=== PATIENT | female | born 1995 | race Caucasian/White ===

== ENCOUNTER → 2019-04-09 | Outpatient (CLI) | payer OTHER ==
[2019-04-09 17:25] LABS: HCT 36.6 % (34.0-46.0); HGB 12.1 gm/dL (11.4-16.0); MCH 30.3 pg (25.0-35.0); MCHC 33.1 g/dL (31.0-37.0); MCV 91.4 fL (80.0-100.0); Mean Platelet Volume 7.9; Platelet Count 292 k/uL (150-450); RBC 4.01 m/uL (3.80-5.40); RDW 11.9 % (11.5-15.5); WBC 9.1 k/uL (3.8-10.6)
[2019-04-09 17:35] LABS: African American GFR (CKD) >90 (>60 ml/min/1.73 sqM); Glucose 101 mg/dL (74-99); Non-African American GFR(CKD) >90 (>60 ml/min/1.73 sqM)
[2019-04-10 01:58] LABS: Hepatitis B Surface Antigen Non-Reactive (Non-Reactive)
--- NOTE | 2019-04-10 03:41 | US ---
EXAMINATION TYPE: Ultrasound OB <= 14 week fetus DATE OF EXAM: 04/09/2019 4:45 PM COMPARISON: NONE CLINICAL HISTORY: 23-year-old female [id number] Confirm Dates. EXAM PERFORMED: Transabdominal (TA) FINDINGS: EXAM MEASUREMENTS: GESTATIONAL AGE / DATING Physician Established: Not yet established Dates by LMP: 01/31/2019 (9 weeks/5 days) EDC: 11/07/2019 Dates by First Scan: No previous this is first scan Dates by Current Scan for: (10 weeks/0 days +/- 6 days) EDC: 11/05/2019 MATERNAL ANATOMY Uterus: 14.2 x 6.0 x 7.1 cm Right Ovary: 2.3 x 1.7 x 1.7 cm Left Ovary: 2.5 x 2.0 x 2.5 cm Post CDS / Adnexa: wl Presence of free fluid: none GESTATION / SURVEY CRL: 3.0 cm (10 weeks/0 days) Yolk Sac (normal less than 6mm): 0.4 cm Heart Rate: 161 bpm Rhythm: Normal IUP: Viable IUP Date of LMP: 01/31/2019 Single viable IUP that correlates with LMP. IMPRESSION: 1. Single live intrauterine with estimated gestational age of 9 weeks 5 days. Current ultra sound biometry is slightly larger (10 weeks 0 days) but remains concordant. 2. Complete survey recommended at 18-20 weeks.
[2019-04-10 08:30] LABS: HIV 1 AB Non-Reactive (Non-Reactive); HIV 2 AB Non-Reactive (Non-Reactive); HIV AB P24 Non-Reactive (Non-Reactive); HIV P24 AG Non-Reactive (Non-Reactive)
== END | disposition home or self-care (01) ==
LOC: RADUSWWP 16:28
PROVIDERS: ATTEND Obstetrics & Gynecology
DX: Z34.01 Encounter for supervision of normal first pregnancy, first trimester (principal)
CPT/HCPCS: 36415; 76801; 82565; 82947; 85027; 86762; 86780; 86850; 86900; 86901; 87340; 87390

== ENCOUNTER 2019-10-18 20:53 | Outpatient (CLI) | payer OTHER ==
[2019-10-18 21:04] VITALS: BP 117/64; PULSE 78; RESP 16; TEMP 97.4
--- NOTE | 2019-10-19 07:49 | P.MSEPDOC ---
Presenting Problems - Arrival Data Date of Arrival on Unit: 10/18/19 Time of Arrival on Unit: 20:53 Mode of Transport: Ambulatory - Complaint OB-Reason for Admission/Chief Complaint: Possible Onset of Labor Comment: Pt presents to [facility] with complaints of contractions that started around 1500. today. Pt states contractions are about 5mins apart and rates them 5/10. Pt is wincing. with contractions but can still talk through them. Pt accompanied by family. Pt denies. any complications with the and denies any leaking of fluid as well. Pt states. she was closed when checked 2 weeks ago. Medical History - Information : 1 Para: 0 Term: 0 : 0 Abortions: Spontaneous or Elective: 0 Number of Living Children: 0 - Gestational Age Gestational Age by JIM (wks/days): 37 Weeks and 1 Days Review of Systems - Review of Systems Constitutional: No problems Breast: No problems ENT: No problems Cardiovascular: No problems Respiratory: No problems Gastrointestinal: No problems Genitourinary: No problems Musculoskeletal: No problems Neurological: No problems Skin: No problems Vital Signs - Temperature Temperature: 97.4 F Temperature Source: Temporal Artery Scan - Pulse Right Brachial Pulse Rate: 78 Pulse Assessment Method: Auscultation - Respirations Respiratory Rate: 16 Oxygen Delivery Method: Room Air - Blood Pressure Right Arm Blood Pressure: 117/64 Blood Pressure Mean: 81 Blood Pressure Source: Automatic Cuff Medical Screen Scoring (Pre) - Cervical Exam Dilation: 0 cm = 0 Membranes: Intact - Uterine Contractions Frequency: > 5 minutes apart = 1 Duration: N/A Intensity: N/A - Maternal Vital Signs Maternal Temperature: N/A Maternal Blood Pressure: N/A Signs of Preeclampsia: N/A Maternal Respirations: N/A - Maternal Trauma Maternal Trauma: N/A - Assessment - Baby A Baseline FHR: 130 Heart Rate - NICHD Category: Category I (Normal) = 0 NST: Reactive Position: N/A Station: N/A - Total Score - Baby A Total Score - Baby A: 1 - Total Score - Baby B Total Score - Baby B: 1 - Total Score - Baby C Total Score - Baby C: 1 - Level of Risk - Baby A Level of Risk - Baby A: Low (0-5) - Level of Risk - Baby B Level of Risk - Baby B: Low (0-5) - Level of Risk - Baby C Level of Risk - Baby C: Low (0-5) Physician Notification (Pre) - Physician Notified Physician Notified Date: 10/18/19 Physician Notified Time: 21:26 New Order Received: Yes - Notification Comment Comment: Dr. Sheridan called and spoke with JULIANA Atkins. She stated that she had spoken with. the patient earlier. Dr. Sheridan instructed that if patients cervix remains unchanged after. the hour she may be discharged without an additional call to Cervical exam remain unchanged since previous exam. Patient states since she has been resting her contractions have "eased up".Patient to be discharged home. Discharge instructions explained to patient and family. Patient verbalized understanding. Patient to keep doctor appt with Dr. Cunningham tomorrow at 11:15. Disposition - Disposition OB Disposition: Discharge to home Discharge Date: 10/18/19 Discharge Time: 22:15 I agree with the RN Medical Screening Exam: Yes Risk & Benefit of care provided described in d/c instruction: Yes Diagnosis: FALSE LABOR AT OR AFTER 37 COMPLETED WEEKS OF GESTATION
== END 2019-10-18 22:15 | disposition home or self-care (01) ==
LOC: FBPOP 20:53
PROVIDERS: ATTEND Obstetrics & Gynecology
DX: O47.1 False labor at or after 37 completed weeks of gestation (principal); Z3A.37 37 weeks gestation of pregnancy
CPT/HCPCS: 59025; G0463; 99213

== ENCOUNTER 2019-11-07 11:26 | Inpatient (IN) | payer OTHER ==
--- NOTE | 2019-11-07 12:50 | P.HPOB ---
History of Present Illness H&P Date: 11/07/19 Chief Complaint: Requested induction of labor This patient is a pleasant 24 yr EDC 11/07/2019 estimated gestational age 40 0/7 weeks who presents to labor and delivery for requested induction of labor. has been uncomplicated with the exception of chronic anemia. She is uncomfortable and desires induction at this time. Review of Systems Genitourinary: Reports Menstruation: Reports amenorrhea Past Medical History Past Medical History: No Reported History History of Any Multi-Drug Resistant Organisms: None Reported Past Surgical History: No Surgical Hx Reported Past Anesthesia/Blood Transfusion Reactions: No Reported Reaction Past Psychological History: No Psychological Hx Reported Smoking Status: Never smoker Past Alcohol Use History: None Reported Past Drug Use History: None Reported Medications and Allergies Home Medications Medication Instructions Recorded Confirmed Type Iron 18 mg PO DAILY 10/18/19 10/18/19 History Pnv No.95/Ferrous Fum/Folic AC 1 each PO DAILY 10/18/19 10/18/19 History [ Multivitamin Tablet] Allergies Allergy/AdvReac Type Severity Reaction Status Date / Time tree and shrub pollen Allergy Itching Verified 10/18/19 20:59 Exam - OBG Physical Exam Abdomen: bowel sounds normal, no diffuse tenderness, no bruit present, no guarding noted, no hepatomegaly, no splenomegaly, no mass Vulva: both: normal Vagina: normal moisture, no discharge Cervix: no lesion (Cervix in the office was 1 cm.), no discharge Uterus: enlarged (Fundal height was 38 cm.) Results bloodwork: O positive, Rubella Immune, DCR-DvnA-ISK neg, GBS negative, Hgb 9.5, Ultrasounds show normal growth and anatomy. Received TDap on 09/12 Assessment and Plan Assessment: This is a pleasant 24 yr female 40 0/7 weeks gestational who presents for requested induction of labor. Plan is induction of labor and anticipate vaginal delivery. (1) 40 weeks gestation of Status: Acute Code(s): Z3A.40 - 40 WEEKS GESTATION OF SNOMED Code(s): 62407994 (2) Elective induction of labor planned Status: Acute Code(s): FDK9728 - SNOMED Code(s): 170450501
[2019-11-08] MEDS: LACTATED RINGERS 1,000 ML IV SCH ×3 (06:10→13:56)
[2019-11-08] MEDS ORDERED: OXYTOCIN 30 UNITS/500 ML NS 30 UNIT in SALINE 1 500ML.BAG IV SCH (06:14)
[2019-11-08] MEDS ORDERED: TERBUTALINE 1 MG/ML VIAL SQ PRN (06:14)
[2019-11-08] MEDS ORDERED: CARBOPROST TROMETHAMINE 250 MCG/ML 1 ML AMP IM PRN (06:14)
[2019-11-08] MEDS ORDERED: METHYLERGONOVINE 0.2 MG/ML 1 ML AMP IM PRN (06:14)
[2019-11-08] MEDS ORDERED: OXYTOCIN 10 UNIT/ML 1 ML VIAL IM PRN (06:14)
[2019-11-08] MEDS ORDERED: LIDOCAINE 0.5% (PF) 5 MG/ML (50 ML SDV) SQ PRN (06:14)
[2019-11-08 06:46] LABS: Basophils % (A) 0 %; Eosinophils # (A) 0.1 k/uL (0-0.7); Eosinophils % (A) 2 %; HCT 37.7 % (34.0-46.0); Lymphocytes # (A) 1.6 k/uL (1.0-4.8); Lymphocytes % (A) 21 %; MCH 30.1 pg (25.0-35.0); MCHC 31.9 g/dL (31.0-37.0); MCV 94.4 fL (80.0-100.0); Mean Platelet Volume 8.2; Monocytes # (A) 0.4 k/uL (0-1.0); Monocytes % (A) 5 %; Neutrophils # (A) 5.3 k/uL (1.3-7.7); Neutrophils % (A) 70 %; Platelet Count 272 k/uL (150-450); RBC 3.99 m/uL (3.80-5.40); RDW 12.6 % (11.5-15.5); WBC 7.5 k/uL (3.8-10.6)
[2019-11-08] MEDS: BUTORPHANOL 1 MG/ML 1 ML VIAL IV PRN ×2 (10:12→12:19)
[2019-11-08] MEDS ORDERED: SODIUM CHLORIDE 0.9% 100 ML BAG ONE (13:33)
[2019-11-08] MEDS ORDERED: ROPIVACAINE 5MG/ML 20ML VIAL ONE (13:33)
[2019-11-08] MEDS ORDERED: fentaNYL (PF) 50 MCG/ML 5 ML AMP ONE (13:33)
[2019-11-08] MEDS ORDERED: ROPIVACAINE 100 MG, fentaNYL (PF) 200 MCG in SODIUM CHLORIDE 0.9% 76 ML EPIDURAL ONE (14:11)
[2019-11-08] MEDS ORDERED: AMPICILLIN 2,000 MG in SODIUM CHLORIDE 0.9% 100 ML IVPB STA (17:40)
[2019-11-08] MEDS ORDERED: diphenhydrAMINE 25 MG CAP PO PRN (20:06)
[2019-11-08] MEDS ORDERED: SIMETHICONE 80 MG CHEWABLE PO PRN (20:06)
[2019-11-08] MEDS ORDERED: diphenhydrAMINE 50 MG/ML 1 ML VIAL IVP PRN (20:06)
[2019-11-08] MEDS ORDERED: bisacodyL 10 MG SUPP RECTAL PRN (20:06)
[2019-11-08] MEDS ORDERED: LANOLIN CREAM 5 GM TUBE TOPICAL PRN (20:06)
[2019-11-08] MEDS ORDERED: HYDROCORTISONE 2.5% RECTAL CREAM 30 GM TUBE RECTAL PRN (20:06)
[2019-11-08] MEDS ORDERED: ZOLPIDEM 5 MG TAB PO PRN (20:06)
[2019-11-08] MEDS ORDERED: BENZOCAINE/MENTHOL SPRAY 1 GM/SPRAY AEROSOL TOPICAL PRN (20:06)
[2019-11-08] MEDS ORDERED: OXYTOCIN 20 UNITS/1000 ML NS 1,000 ML IV SCH (20:06)
--- NOTE | 2019-11-08 20:43 | P.PROBDLV ---
Vaginal Delivery Note - . Vaginal Delivery Note: Normal vaginal delivery viable female Apgars 5 and 9 delivery time is 1950 hrs. Please see dictated H&P for intimate details of this patient's admission. Brief summary this is a pleasant 24-year-old 1 para 0 female estimated gestational age 40 and one sevenths weeks who presents to labor and delivery for requested induction of labor. On admission patient is approximately 2 cm dilated has artificial rupture membranes for clear fluid. Labor is induced with Pitocin per protocol. Labor progresses and she does get an epidural for pain control. Patient does have some variable decelerations that resolved with position changes during labor. When she gets to completely dilated she feels to be asynclitic therefore she is allowed to labor down. heart tones remain reassuring with occasional variable decelerations. Patient patient also devel oped towards the end of her labor a low-grade temperature of 99 therefore was given 2 g of ampicillin. Patient soon thereafter feels the urge to push and was found to be +1 station. Patient pushes approximately 3 contractions and pushes the head to the perineum. Posterior perineum was supported and we have controlled delivery of the 's head over the intact perineum. Mouth and nares are bulb suctioned. There is a very tight nuchal cord which is doubly clamped cut and then reduced. With gentle downward traction we then have deliver the anterior and posterior shoulder and rest this 's body. This is a viable female . Initially is depressed due to a tight nuchal cord, but with stimulation has spontaneous respirations and good cry. Apgars are 5 at 1 minute and 9 at 5 minutes. After delivery of the the placenta is spontaneously delivered intact. Inspection of the perineum shows a first- degree laceration and a right labial lacerations. Both of these are repaired with 3-0 Vicryl usual fashion and excellent hemostasis is noted. With this completed, all counts are correct 3. There are no complications. and mother are stable delivery room.
[2019-11-08] MEDS: IBUPROFEN 600 MG TAB PO PRN (22:59)
[2019-11-09] MEDS: SENNOSIDES-DOCUSATE SODIUM 1 EACH TAB PO SCH ×3 (04:56→20:29)
--- NOTE | 2019-11-09 05:37 | P.PNOBGVD ---
Subjective - Subjective Patient reports: Reports appetite normal, Reports voiding normally, Reports pain well controlled, Reports ambulating normally : doing well Objective - Latest Vital Signs Latest vital signs: Vital Signs Temp Pulse Resp BP Pulse Ox 11/09/19 04:00 98.1 F 81 16 118/73 97 11/08/19 22:07 98.2 F 82 16 128/68 11/08/19 21:37 98.6 F 72 16 124/66 11/08/19 21:07 98.8 F 76 16 146/97 11/08/19 20:52 83 16 125/56 11/08/19 20:37 98.3 F 82 16 112/53 11/08/19 20:22 97.6 F 73 16 119/58 11/08/19 20:07 99.9 F H 82 18 122/61 11/08/19 06:30 96.5 F L 99 18 131/71 Intake and Output 11/08/19 11/08/19 11/09/19 14:59 22:59 06:59 Intake Total 1999 Balance 1999 Intake: IV 1999 Other: # Voids 3 1 3 - Exam Lungs: bilateral: normal Chest: Normal S1, Normal S2 Extremities: Present: normal Abdomen: Present: normal appearance, soft Uterus: Present: normal, firm Assessment and Plan Assessment: Post day #1. Patient is resting without complaints. Vital signs are stable and she is afebrile. Uterus is firm nontender she's having normal lochia. My impression this is a normal course. Plan is to continue routine care discharge home tomorrow (1) 40 weeks gestation of Current Visit: No Status: Acute Code(s): Z3A.40 - 40 WEEKS GESTATION OF SNOMED Code(s): 16505608 (2) Elective induction of labor planned Current Visit: No Status: Acute Code(s): AMD4567 - SNOMED Code(s): 583016998
[2019-11-09] MEDS: ACETAMINOPHEN TAB 325 MG TAB PO PRN ×2 (05:46→23:21)
[2019-11-09] MEDS: IBUPROFEN 600 MG TAB PO PRN ×3 (07:35→20:29)
[2019-11-10] MEDS: IBUPROFEN 600 MG TAB PO PRN (02:58)
[2019-11-10] MEDS: SENNOSIDES-DOCUSATE SODIUM 1 EACH TAB PO SCH (07:33)
[2019-11-10] MEDS: ACETAMINOPHEN TAB 325 MG TAB PO PRN (07:33)
[2019-11-10 09:21] VITALS: BP 117/56; PULSE 63; RESP 19; TEMP 97.3
--- NOTE | 2019-11-10 09:37 | P.DS ---
Providers Date of admission: 11/08/19 05:50 Expected date of discharge: 11/10/19 Attending physician: Amadeo Cunningham Primary care physician: Stated None - Discharge Diagnosis(es) (1) Status post normal vaginal delivery Current Visit: Yes Status: Acute Hospital Course: Patient presented for induction of labor. She underwent normal vaginal delivery. course was uncomplicated. She denies nausea, vomiting, chest pain, shortness of breath or any calf pain. Lochia is minimal. She'll be discharged home day #1 in stable condition to follow-up with Dr. Cunningham in 6 weeks. Plan - Discharge Summary New Discharge Prescriptions: New Ibuprofen [Motrin] 600 mg PO Q6HR PRN #40 tab PRN Reason: Mild Pain Or Fever >= 100.5 No Action Pnv No.95/Ferrous Fum/Folic AC [ Multivitamin Tablet] 1 each PO DAILY Iron 18 mg PO DAILY Discharge Medication List Iron 18 mg PO DAILY 10/18/19 [History] Pnv No.95/Ferrous Fum/Folic AC [ Multivitamin Tablet] 1 each PO DAILY 10/18/19 [History] Ibuprofen [Motrin] 600 mg PO Q6HR PRN #40 tab 11/09/19 [Rx] Follow up Appointment(s)/Referral(s): Amadeo Cunningham MD [STAFF PHYSICIAN] - 6 Weeks Patient Instructions/Handouts: Vaginal Delivery (DC) Activity/Diet/Wound Care/Special Instructions: No intercourse or anything per vagina. Please call if any fever, chills, excessive vaginal bleeding, and/or abdominal pain. Discharge Disposition: HOME SELF-CARE
== END 2019-11-10 11:25 | disposition home or self-care (01) | DRG 807 ==
LOC: 4FBP 11-08 05:50
PROVIDERS: ADMIT Obstetrics & Gynecology; ATTEND Obstetrics & Gynecology
PROC: 3E0R3BZ Introduction of Anesthetic Agent into Spinal Canal, Percutaneous Approach (ICD-10-PCS; principal; 2019-11-08)
PROC: 3E033VJ Introduction of Other Hormone into Peripheral Vein, Percutaneous Approach (ICD-10-PCS; principal; 2019-11-08)
PROC: 10E0XZZ Delivery of Products of Conception, External Approach (ICD-10-PCS; principal; 2019-11-08)
PROC: 00HU33Z Insertion of Infusion Device into Spinal Canal, Percutaneous Approach (ICD-10-PCS; principal; 2019-11-08)
PROC: 0HQ9XZZ Repair Perineum Skin, External Approach (ICD-10-PCS; principal; 2019-11-08)
PROC: 10907ZC Drainage of Amniotic Fluid, Therapeutic from Products of Conception, Via Natural or Artificial Opening (ICD-10-PCS; principal; 2019-11-08)
DX: O76 Abnormality in fetal heart rate and rhythm complicating labor and delivery (principal); Z37.0 Single live birth; D64.9 Anemia, unspecified; O99.02 Anemia complicating childbirth; O69.1XX0 Labor and delivery complicated by cord around neck, with compression, not applicable or unspecified; O70.0 First degree perineal laceration during delivery; Z3A.40 40 weeks gestation of pregnancy; Z79.899 Other long term (current) drug therapy; Z91.048 Other nonmedicinal substance allergy status
CPT/HCPCS: 85025; 86850; 86900; 86901; 88307